=== PATIENT | male | born 1965 | race Caucasian/White ===

== ENCOUNTER 2018-03-16 08:40 | Emergency (ER) | payer SELFPAY ==
[2018-03-16 08:43] VITALS: BP 179/115; PULSE 107; RESP 16; TEMP 36.5; O2SAT 94
--- NOTE | 2018-03-16 08:51 | ED.GENADUL_ITS ---
Discharge Plan Disposition Patient Disposition: HOME Condition: Stable Discharge Details Chief Complaint: Orthopedic Clinical Impression: Right ankle sprain ED Provider: Aiem Harrison Home Meds and New Rx's Prescriptions: No Action No Known Home Meds RF: 0 Discharge Instructions Instructions: Ankle Sprain (ED) Additional Instructions: if pain continues next week see your primary care provider you can take 1000mg tylenol and 600mg ibuprofen every 6 hours for pain as needed you should have your blood pressure rechecked in 2 weeks with your primary care office as it was elevated here Discharge Data Discharge Physician: Aime Harrison Medical Decision Making MDM Narrative Medical decision making narrative: Pt states he tripped 3 days ago on a step and rolled his right ankle, denies hitting his head or loc. Has had right ankle pain since. Could be sprain but will xray to eval for fx. xray shows no acute findings here. I recommended following up with pcp if pain continues in one week and also advised he have his BP rechecked with his pcp within 2 weeks as it was elevated here, is asympatomatic with this at this time so no workup for this indicated Differential Diagnosis sprain, fx Imaging Data Radiologic Study: Attestation: I personally reviewed and interpreted this imaging study as follows: Imaging: X-Ray My impression: no acute findings HPI - General Adult General Mode of arrival: ambulatory (using cane) . Date/Time Provider Initiated Documentation: 03/16/18 08:43 . Limitations to Documentation: no limitations . Information obtained by: patient . History of Present Illness 52 year old M presents to the emergency department with the chief complaint of right ankle pain, described as moderate, with intensity rated at 4. Quality is described as aching, and is localized to the right and lower extremity. Patient reports no radiation. Patient started experiencing this day(s) (3) and it has been constant. Rest improves symptom(s), Movement worsens symptoms . Patient notes no other symptoms.. Patient did receive the following treatments prior to arrival, none Related Data Home Medications Medication Instructions Recorded Confirmed Unknown [No Known Home Meds] 03/16/18 03/16/18 Allergies Allergy/AdvReac Type Severity Reaction Status Date / Time No Known Allergies Allergy Unverified 03/16/18 08:50 General Stated Complaint: Orthopedic ANDRÉS: 4 Review of Systems Review of Systems All systems reviewed & are unremarkable except as noted in HPI and below Constitutional Denies chills, Denies fever(s) and Denies weakness Eyes Patient Denies loss of vision ENT Denies change in voice Cardiovascular Denies chest pain and Denies dyspnea Respiratory Denies dyspnea Gastrointestinal Denies abdominal pain, Denies nausea and Denies vomiting Genitourinary Denies dysuria Musculoskeletal Denies joint swelling Integumentary/Breasts Denies rash Neurologic Denies loss of vision and Denies weakness Psychiatric Denies depression Endocrine Denies cold intolerance and Denies heat intolerance Allergic/Immunologic Reports urticaria PFSH Social History Smoking/Tobacco Use Status: Never Exam Const General: no acute distress Orientation: alert HENID Head: normal to inspection Ears: external ears normal General nose exam: external nose normal Mouth: moist mucous membranes Eyes General: appearance normal, both eyes and all related structures Neck Neck: normal visual inspection Resp Effort & Inspection: normal respiratory effort and able to speak in complete sentences Cardio Rate: regular rate Skin General skin exam: no rashes or lesions noted Neuro General: alert and oriented x3 Extrem General: other (right ankle swollen, has limited rom due to pain, 2+ dp/pt pulses, intact sensation, no pain over metatarsals) Psych Mental Status: mental status grossly normal Course Vital Signs Temperature 36.5 C 03/16/18 08:43 Pulse 107 H 03/16/18 08:43 Respiratory Rate 16 03/16/18 08:43 Blood Pressure 179/115 H 03/16/18 08:43 Pulse Oximetry 94 L 03/16/18 08:43 Temperature 36.5 C 03/16/18 08:43 Pulse 107 H 03/16/18 08:43 Respiratory Rate 16 03/16/18 08:43 Blood Pressure 179/115 H 03/16/18 08:43 Pulse Oximetry 94 L 03/16/18 08:43
--- NOTE | 2018-03-16 09:05 | DI.RAD_ITS ---
SYMPTOM/DIAGNOSIS: PAIN, S/P FALL RIGHT ANKLE: Three views were obtained. The ankle mortise appears well maintained. There is deformity of the tip of the fibula which appears to represent an acute, minimally displaced fracture. No additional fracture is seen except for possible slight cortical deformity of the medial aspect of the talus. Nondisplaced talar fracture at this site not entirely excluded.
[2018-03-16 09:26] VITALS: BP 176/90
[2018-03-16 09:31] VITALS: BP 176/90
--- NOTE | 2018-03-16 10:03 | ED.FU.B_ITS ---
radiologist felt he had distal nondisplaced fibula fx. Message left for patient to return for walking boot and will have him follow up with orthopedics as well , instructed he could weight bear as tolerated
== END 2018-03-16 09:35 | disposition home or self-care (01) ==
LOC: ER 09:43
PROVIDERS: Emergency Provider Emergency Medicine; PCP Family Medicine
DX: S93.401A Sprain of unspecified ligament of right ankle, initial encounter (principal); X50.9XXA Other and unspecified overexertion or strenuous movements or postures, initial encounter; I10 Essential (primary) hypertension
CPT/HCPCS: 99283; 73610; L4361

== ENCOUNTER 2018-08-25 21:57 | Emergency (ER) | payer SELFPAY ==
[2018-08-25 22:06] VITALS: BP 204/113; PULSE 99; RESP 20; TEMP 37; O2SAT 96
--- NOTE | 2018-08-25 22:56 | DI.RAD_ITS ---
SYMPTOM/DIAGNOSIS: LT CHEST PAIN, COUGH PA AND LATERAL CHEST: There are no prior comparison exams. The heart size is normal. The lungs are well inflated and clear. No infiltrate or effusion is seen. There is no evidence of pneumothorax. Degenerative changes are seen in the spine. IMPRESSION: No acute abnormality.
--- NOTE | 2018-08-25 23:17 | DI.VRAD_ITS ---
EXAM: XR Chest, 2 Views EXAM DATE/TIME: 08/25/2018 10:33 PM CLINICAL HISTORY: 53 years old, male; Pain; Chest pain; Left-sided chest pain TECHNIQUE: XR of the chest, 2 views. COMPARISON: No relevant prior studies available. FINDINGS: Lungs: Within normal limits. No consolidation. Pleural space: Unremarkable. No pleural effusion. No pneumothorax. Heart/Mediastinum: Unremarkable. No cardiomegaly. Bones/joints: Degenerative changes of the spine. No acute osseous findings. IMPRESSION: No acute findings. Dictated and Authenticated by: June Ch MD. Ordering:JACKELINE Salomon MD
--- NOTE | 2018-08-25 23:20 | W.ED.GENAD ---
Discharge Plan Disposition Patient Disposition: HOME Condition: Good Discharge Details Chief Complaint: RespSymp Clinical Impression: Cough, Hypertension Primary Care Provider: Marlen Varma ED Provider: Aime Harrison Home Meds and New Rx's Prescriptions: New prednisone 20 mg tablet 60 mg PO DAILY 4 Days Qty: 12 RF: 0 Discharge Instructions Instructions: Hypertension (ED), Acute Cough (ED) Additional Instructions: you can take 1000mg tylenol and 600mg ibuprofen every 6 hours for pain as needed follow up with your primary care provider within 1-2 weeks and have your blood pressure rechecked If you have high fevers, difficulty breathing or feel more ill return to the emergency department Medical Decision Making 53 yo male who denies chornic medical problems comes in with cc of cough for several days, had a coughing fit tonight and though he felt a pop in the left chest. He states he has no shortness of breath and only has chest pain when he coughs. Has had sinus pressure as well, denies fevers. he has clear lungs on exam with stable vitals and appears well, Will xray to eval for possible ptx vs pna. Pain is only with coughing so do not feel workup for PE, acs or other life threatening conditions indicated at this time pt remains stable, no respiratory distress. Xray is negative, do not feel abx indicated at this time. He states steroids have helped in similar situations in the past so will provide this. I also advise he f/u with his pcp and have his BP rechecked as well. Return precautions given. He has no substernal chest pressure, headaches or other findings to warrant acute lowering of his bp at this time Differential Diagnosis pleurisy, pna, viral illness Imaging Data Radiologic Study: Attestation: I personally reviewed and interpreted this imaging study as follows: Imaging: X-Ray Radiologist's impression: no acute findings HPI General Mode of arrival: ambulatory. Date/Time Provider Initiated Documentation: 08/25/18 21:59. Limitations to Documentation: no limitations. Information obtained by: patient. History of Present Illness 53 year old M presents to the emergency department with the chief complaint of cough, described as moderate, and is localized to the chest. Patient reports no radiation. Patient started experiencing this day(s) (3) and it has been constant. No relieving factors improve symptom(s), No exacerbating factors reported . Related Data Home Medications Medication Instructions Recorded Confirmed prednisone 60 mg PO DAILY 4 Days #12 tab 08/25/18 Previous Rx's Medication Instructions Recorded prednisone 60 mg PO DAILY 4 Days #12 tab 08/25/18 Allergies Allergy/AdvReac Type Severity Reaction Status Date / Time No Known Allergies Allergy Unverified 08/25/18 22:16 General Stated Complaint: RespSymp ANDRÉS: 3 Review of Systems Review of Systems All systems reviewed & are unremarkable except as noted in HPI and below Constitutional Denies chills, Denies fever(s) and Denies weakness Eyes Denies loss of vision ENT Denies change in voice Cardiovascular Denies dyspnea Respiratory Denies dyspnea Gastrointestinal Denies abdominal pain, Denies nausea and Denies vomiting Genitourinary Denies dysuria Musculoskeletal Denies joint swelling Integumentary/Breasts Denies rash Neurologic Denies loss of vision and Denies weakness Endocrine Denies heat intolerance [facility] Social History Smoking and Tabacco status: Never Exam Const General: no acute distress Orientation: alert HENMT Head: normal to inspection Ears: external ears normal General nose exam: external nose normal Mouth: moist mucous membranes Eyes General: appearance normal, both eyes and all related structures Neck Neck: normal visual inspection Resp Effort & Inspection: normal respiratory effort and able to speak in complete sentences Cardio Rate: regular rate Skin General skin exam: no rashes or lesions noted Neuro General: alert and oriented x3 Extrem General: normal to inspection Psych Mental Status: mental status grossly normal Course Vital Signs Temperature 37.0 C 08/25/18 22:06 Pulse 99 H 08/25/18 22:06 Respiratory Rate 20 08/25/18 22:06 Blood Pressure 204/113 H 08/25/18 22:06 Pulse Oximetry 96 08/25/18 22:06 Temperature 37.0 C 08/25/18 22:06 Temperature Source Temporal Artery Scan 08/25/18 22:06 Pulse 99 H 08/25/18 22:06 Respiratory Rate 20 08/25/18 22:06 Respiratory Effort 08/25/18 22:11 Respiratory Depth Shallow 08/25/18 22:11 Blood Pressure 204/113 H 08/25/18 22:06 Pulse Oximetry 96 08/25/18 22:06 Oxygen Delivery Method Room Air 08/25/18 22:06 Oxygen Flow Rate 0 08/25/18 22:06 Pain Level 10 08/25/18 22:06
[2018-08-25] MEDS: predniSONE 20 MG TAB 60 MG PO (23:41)
== END 2018-08-25 23:45 | disposition home or self-care (01) ==
PROVIDERS: Emergency Provider Emergency Medicine; PCP Family Medicine
DX: R05 Cough (principal); I10 Essential (primary) hypertension
CPT/HCPCS: 99283; 71046; J7512